=== PATIENT | male | born 1940 | race Caucasian/White ===

== ENCOUNTER → 2021-05-25 | Outpatient (CLI) | payer OTHER | LOC: M.CT 05-24 09:00 | PROVIDERS: ATTEND Family Medicine | DX: G93.89 Other specified disorders of brain (principal); J32.0 Chronic maxillary sinusitis; I65.23 Occlusion and stenosis of bilateral carotid arteries; R51.9 Headache, unspecified; H53.9 Unspecified visual disturbance ==